=== PATIENT | female | born 1970 | race Caucasian/White ===

== ENCOUNTER 2019-04-19 08:42 | Emergency (ER) | payer SELFPAY ==
[2019-04-19 08:49] VITALS: TEMP 98.3; BMI 31.7
[2019-04-19] MEDS ORDERED: ONDANSETRON 4 MG/2 ML VIAL IVPUSH ONE (09:27)
[2019-04-19] MEDS ORDERED: SODIUM CHLORIDE 1,000 ML IV STA (09:27)
[2019-04-19] MEDS ORDERED: KETOROLAC TROMETHAMINE 30 MG/1 ML VIAL IVPUSH ONE (09:27)
--- NOTE | 2019-04-19 09:30 | PDOC ---
History of Present Illness - General Chief Complaint: Back Pain Stated Complaint: BACK PAIN Time Seen by Provider: 04/19/19 09:17 History Source: Patient - History of Present Illness Occurred: reports: other Severity: reports: severe Pain Location: reports: back Past History - Past Medical History Allergies/Adverse Reactions: Allergies Allergy/AdvReac Type Severity Reaction Status Date / Time No Known Allergies Allergy Verified 04/19/19 08:48 Home Medications: Ambulatory Orders Ibuprofen [Motrin] 600 mg PO TID #20 tablet 04/29/12 No Home Medications 0 dose .ROUTE UTDICT 04/29/12 Oxycodone HCl/Acetaminophen [Percocet 5-325 mg Tablet] 1 - 2 tab PO Q4H PRN #20 tablet 04/29/12 Amlodipine Besylate 5 mg PO DAILY #30 tablet 04/19/19 Cyclobenzaprine HCl [Flexeril 10 mg] 10 mg PO HS #9 tablet 04/19/19 Naproxen 500 mg PO BID #14 tablet 04/19/19 COPD: No HTN: Yes - Psycho Social/Smoking Cessation Hx Smoking Status: No Smoking History: Never smoked Have you smoked in the past 12 months: No Number of Cigarettes Smoked Daily: 0 Information on smoking cessation initiated: No Hx Alcohol Use: No Drug/Substance Use Hx: No Review of Systems - Review of Systems Constitutional: No: Chills ABD/GI: Yes: Nausea. No: Constipated, Diarrhea, Vomiting : Yes: Flank Pain. No: Burning, Dysuria, Discharge, Hematuria Musculoskeletal: Yes: Back Pain Neurological: No: Numbness, Tingling, Weakness *Physical Exam - Vital Signs Last Vital Signs Temp Pulse Resp BP Pulse Ox 98.3 F 76 19 168/107 H 99 04/19/19 08:45 04/19/19 08:45 04/19/19 08:45 04/19/19 08:45 04/19/19 08:45 - Physical Exam General Appearance: Yes: Appropriately Dressed, Moderate Distress HEENT: positive: Normal Voice Neck: positive: Supple Respiratory/Chest: negative: Respiratory Distress Gastrointestinal/Abdominal: positive: Normal Bowel Sounds, Tender (poorly localized ttp to R abd), Soft. negative: Distended, Guarding, Rebound Musculoskeletal: negative: CVA Tenderness Integumentary: positive: Dry, Warm Neurologic: positive: Fully Oriented, Alert, Normal Mood/Affect, Motor Strength 11/15 ED Treatment Course - LABORATORY CBC & Chemistry Diagram: 04/19/19 09:30 04/19/19 09:26 - RADIOLOGY Radiology Studies Ordered: Category Date Time Status ABDOMEN & PELVIS CT W/O CONTR [CT] Stat CT Scan 04/19/19 09:26 Ordered Medical Decision Making - Medical Decision Making 04/19/19 09:27 49-year-old female, endorses history of kidney stone over 25 years ago, no surgery, here with right flank pain that started Friday and has been persistent , worse with movement. Was nauseous last night and might have seen one episode where her urine appeared cloudy. otherwise no dysuria frequency hematuria or fever. No trauma or other obvious inciting factors. Not certain if current pain feels like her prior kidney stone see exam Possible MSK back pain, r/o stone Appears uncomfortable w/ elevated BP (? 2/2 pain) w/ poorly localized ttp to R abd, no concern for dissection -pain control -IVF -labs/ua -CT 04/19/19 09:30 Labs and urine unremarkable. CT read as bilateral non-obstructing stones with mild R hydro but no ureteral stones seen, ? recently passed stone per report. Pain since improved. Repeat blood pressure improved after given dose of her norvasc. Patient admits that she has not been taking her medication as she ran out. Refill sent to pharmacy. To follow-up with PMD Discharge - Discharge Information Problems reviewed: Yes Clinical Impression/Diagnosis: Renal stones, Elevated blood pressure reading Low back pain Qualifiers: Chronicity: acute Back pain laterality: right Sciatica presence: without sciatica Qualified Code(s): M54.5 - Low back pain Condition: Improved Disposition: HOME - Additional Discharge Information Prescriptions: Cyclobenzaprine HCl [Flexeril 10 mg] 10 mg PO HS #9 tablet Naproxen 500 mg PO BID #14 tablet - Follow up/Referral - Patient Discharge Instructions Patient Printed Discharge Instructions: Low Back Pain Additional Instructions: Your CAT scan shows that you have bilateral kidney stones but none of the stones are in a location to cause pain so the cause of your back pain is unclear , possibly muscular skeletal Take medications as prescribed Return to ED for worsening of symptoms Your blood pressure was elevated today. Resume your home meds and follow-up with your PMD - Post Discharge Activity Work/Back to School Note: Back to Work
[2019-04-19] MEDS ORDERED: KETOROLAC TROMETHAMINE 30 MG/1 ML VIAL ONE (09:39)
[2019-04-19] MEDS ORDERED: ONDANSETRON 4 MG/2 ML VIAL ONE (09:39)
[2019-04-19 10:41] LABS: BASO % 0.5 % (0-2.0); HEMATOCRIT 41.6 % (32.4-45.2); LYMPH % 24.4 % (8-40); MCH 30.2 pg (25.7-33.7); MCHC 33.8 g/dl (32.0-36.0); MEAN CELL VOLUME 89.4 fl (80-96); MEAN PLT VOLUME 8.6 fl (7.5-11.1); MONO % 4.9 % (3.8-10.2); NEUT % 69.2 % (42.8-82.8); PLATELET COUNT 286 K/MM3 (134-434); RBC 4.65 M/mm3 (3.60-5.2); WHITE BLOOD COUNT 7.1 K/mm3 (4.0-10.0)
[2019-04-19 11:00] LABS: URINE APPEARANCE CLEAR; URINE BILIRUBIN NEGATIVE (NEGATIVE); URINE COLOR YELLOW; URINE GLUCOSE (UA) NEGATIVE (NEGATIVE); URINE KETONE NEGATIVE (NEGATIVE); URINE LEUK ESTERASE NEGATIVE (NEGATIVE); URINE NITRITE NEGATIVE (NEGATIVE); URINE PROTEIN NEGATIVE (NEGATIVE); URINE UROBILINOGEN 0.2 mg/dL (0.2-1.0)
[2019-04-19 11:07] LABS: ALBUMIN 3.8 g/dl (3.4-5.0); BILIRUBIN,TOTAL 0.5 mg/dL (0.2-1); BLOOD UREA NITROGEN 12.7 mg/dL (7-18); CALCIUM 8.9 mg/dL (8.5-10.1); CREATININE 0.6 mg/dL (0.55-1.3); POTASSIUM 4.4 mmol/L (3.5-5.1); TOT PROT 7.7 g/dl (6.4-8.2)
[2019-04-19] MEDS ORDERED: LISINOPRIL 5 MG TABLET (FP) PO ONE (11:37)
[2019-04-19] MEDS ORDERED: LISINOPRIL 5 MG TABLET (FP) ONE (11:39)
[2019-04-19] MEDS ORDERED: amLODIPine BESYLATE 5 MG TABLET (FP) PO ONE (11:51)
[2019-04-19] MEDS ORDERED: amLODIPine BESYLATE 5 MG TABLET (FP) ONE (11:53)
[2019-04-19 12:31] VITALS: BP 157/97; PULSE 66
== END 2019-04-19 13:01 | disposition home or self-care (01) ==
LOC: JERFT 08:42
PROC: 3E033GC Introduction of Other Therapeutic Substance into Peripheral Vein, Percutaneous Approach (ICD-10-PCS; principal; 2019-04-19)
PROC: 3E0333Z Introduction of Anti-inflammatory into Peripheral Vein, Percutaneous Approach (ICD-10-PCS; 2019-04-19)
DX: N20.0 Calculus of kidney (principal); Z87.442 Personal history of urinary calculi; I10 Essential (primary) hypertension
CPT/HCPCS: 36415; 74176-TC; 80053; 81003; 85025; 87086; 99283-25; J7030

== ENCOUNTER → 2020-12-27 | Day surgery (SDC) | payer OTHER | END | disposition home or self-care (01) | LOC: FMAMMOTONE 11:22 | PROVIDERS: ATTEND Surgery | PROC: 0HBT3ZX Excision of Right Breast, Percutaneous Approach, Diagnostic (ICD-10-PCS; principal; 2020-12-27) | DX: N60.31 Fibrosclerosis of right breast (principal); N64.89 Other specified disorders of breast; R92.1 Mammographic calcification found on diagnostic imaging of breast | CPT/HCPCS: 19081; 76098-TC-FY; 87899; A4648 ==